=== PATIENT | male | born 1955 | race Caucasian/White ===

== ENCOUNTER 2017-07-16 22:56 | Emergency (ER) | payer BC ==
[~2017-07-16] VITALS: Ht 167.6 cm; Wt 80.5 kg
[2017-07-16 23:04] VITALS: BP 156/77; PULSE 59; RESP 16; TEMP 98
--- NOTE | 2017-07-16 23:54 | PD ---
HPI Chief Complaint: Bite or Sting Time Seen by Provider: 23:49 Travel History International Travel<30 days: No Contact w/Intl Traveler<30days: No Traveled to known affect area: No History of Present Illness HPI 62-year-old male patient with history of previous CABG, presents to the ER today because he states that he was holding his 6-month-old kitten when a dog approached them and the cat became nervous and bit and scratched him multiple times on both arms. He denies any other issues or injuries. He states that this happened at around 8 PM and his hand is getting swollen. He states the last tetanus shot was in February. The cat has up-to-date vaccinations. Modifying Factors: None Associated Signs & Symptoms: Cat bite and scratches to both arms Risk Factors: None PFSH Past Medical History Hx Anticoagulant Therapy: Yes Cardiovascular Problems: Yes (CABG) Social History Tobacco Use: No Allergies-Medications (Allergen,Severity, Reaction): Coded Allergies: lisinopril (Verified Allergy, Mild, HIVE, 07/16/17) Reported Meds & Prescriptions Reported Meds & Active Scripts Active Reported Rosuvastatin (Rosuvastatin Calcium) 10 Mg Tab 10 Mg PO HS Losartan (Losartan Potassium) 25 Mg Tab 25 Mg PO DAILY Metoprolol Tartrate 25 Mg Tab 25 Mg PO BID Review of Systems Except as stated in HPI: all other systems reviewed are Neg Physical Exam Narrative GENERAL: Well-developed elderly white male patient currently in mild distress. Awake and oriented 3. SKIN: Focused skin assessment warm/dry. There are multiple puncture wounds on the right forearm and hand and small abrasions and puncture wound to the left middle finger and forearm. Most of the wounds are concentrated on the right arm. No signs of tenosynovitis. HEAD: Atraumatic. Normocephalic. EYES: Pupils equal and round. No scleral icterus. No injection or drainage. ENT: No nasal bleeding or discharge. Mucous membranes pink and moist. NECK: Trachea midline. No JVD. CARDIOVASCULAR: Regular rate and rhythm. No murmur appreciated. RESPIRATORY: No accessory muscle use. Clear to auscultation. Breath sounds equal bilaterally. GASTROINTESTINAL: Abdomen soft, non-tender, nondistended. Hepatic and splenic margins not palpable. MUSCULOSKELETAL: No obvious deformities. No clubbing. No cyanosis. No edema. NEUROLOGICAL: Awake and alert. No obvious cranial nerve deficits. Motor grossly within normal limits. Normal speech. PSYCHIATRIC: Appropriate mood and affect; insight and judgment normal. Data Data Last Documented VS Vital Signs Date Time Temp Pulse Resp B/P (MAP) Pulse Ox O2 Delivery O2 Flow Rate FiO2 07/17/17 00:02 16 07/16/17 23:04 98.0 59 156/77 (103) Orders Orders Forearm (2vws) (07/16/17 23:49) Hand, Limited (2vws) (07/16/17 23:49) Amoxicil-Clavulanate (Augmentin) (07/17/17 00:00) Ed Discharge Order (07/17/17 00:53) [facility] Medical Decision Making Medical Screen Exam Complete: Yes Emergency Medical Condition: Yes Medical Record Reviewed: Yes Interpretation(s) Last 24 hours Impressions Radius/Ulna X-Ray 07/16/172348 Signed Impressions: Service Date/Time: Sunday, July 16, 2017 23:59 - CONCLUSION: No acute disease. Orlando De La Garza MD Hand X-Ray 07/16/172348 Signed Impressions: Service Date/Time: Sunday, July 16, 2017 23:59 - CONCLUSION: No acute disease. Orlando De La Garza MD Differential Diagnosis Cat bites and scratches to the arms Narrative Course Was at the bites and scratches seems to be concentrated on the right arm. There is mild tenderness around the puncture wounds. I do not see any signs of significant foreign bodies. Patient's up-to-date on vaccination in the cat is up-to-date on vaccinations. Patient was given a dose of Augmentin in the ER. X -rays did not show any signs of foreign body or bony injuries. At this point, my plan would be to release the patient with further antibiotics. Follow-up with primary care physician. Return for any worsening in pain, fevers, and as needed. The plan has been discussed with the patient and he states understanding. Diagnosis Primary Impression: Cat bite of forearm Additional Impression: Cat bite of hand Med/Other Pt SpecificInfo: Prescription(s) given Scripts Ibuprofen (Ibuprofen) 600 Mg Tab 600 MG PO Q6H Y for Pain/Inflammation, #20 TAB 0 Refills Prov: Magdalena Diana MD 07/17/17 Amoxicillin-Clavulanate (Augmentin) 875-125 Mg Tab 1 TAB PO BID for Infection, #14 TAB 0 Refills Prov: Magdalena Diana MD 07/17/17 Disposition: 01 DISCHARGE HOME Condition: Stable Magdalena Diana MD Jul 16, 2017 23:54
[2017-07-17] MEDS ORDERED: AMOXICILLIN/CLAVULANATE K 875 MG TAB PO ONE
[2017-07-17] MEDS ORDERED: LOSA25TA PO (00:02)
[2017-07-17] MEDS ORDERED: ROSU1TAB6 PO (00:02)
[2017-07-17] MEDS ORDERED: METO25TA3 PO (00:02)
--- NOTE | 2017-07-17 00:34 | RADRPT ---
EXAM DATE/TIME: 07/16/2017 23:59 [facility] COMPARISON: No previous studies available for comparison. INDICATIONS : Right forearm pain post multiple cat bites. MEDICAL HISTORY : None. SURGICAL HISTORY : None. ENCOUNTER: Initial ACUITY: 1 day PAIN SCORE: 5/10 LOCATION: Right upper extremity FINDINGS: Two view examination of the right forearm demonstrates no evidence of fracture or dislocation. Bony mineralization is normal. The soft tissue structures are intact. CONCLUSION: No acute disease. Orlando De La Garza MD on July 17, 2017 at 0:31 Board Certified Radiologist. This report was verified electronically.
--- NOTE | 2017-07-17 00:35 | RADRPT ---
EXAM DATE/TIME: 07/16/2017 23:59 [facility] COMPARISON: No previous studies available for comparison. INDICATIONS : Right hand pain post multiple cat bites. MEDICAL HISTORY : None. SURGICAL HISTORY : None. ENCOUNTER: Initial ACUITY: 1 day PAIN SCORE: 5/10 LOCATION: Right upper extremity FINDINGS: Two view examination of the right hand demonstrates no soft tissue swelling, dislocation, or fracture . The joint spaces are maintained. There is mild chronic cystic change at the distal ulna. Bony mi neralization is normal. CONCLUSION: No acute disease. Orlando De La Garza MD on July 17, 2017 at 0:32 Board Certified Radiologist. This report was verified electronically.
[2017-07-17] MEDS ORDERED: IBUP-232 PO (00:55)
[2017-07-17] MEDS ORDERED: AUGM875T3 PO (00:55)
[2017-07-17 01:02] VITALS: BP 142/75; TEMP 98.2
== END 2017-07-17 01:03 | disposition home or self-care (01) ==
LOC: PHED 22:56
DX: S51.851A Open bite of right forearm, initial encounter (principal); S61.451A Open bite of right hand, initial encounter; W55.01XA Bitten by cat, initial encounter; Z95.1 Presence of aortocoronary bypass graft; Z88.8 Allergy status to other drugs, medicaments and biological substances; Z79.899 Other long term (current) drug therapy
CPT/HCPCS: 73090; 73120; 99283